=== PATIENT | male | born 1965 | race Caucasian/White ===

== ENCOUNTER 2020-04-15 07:00 | Outpatient (RCR) | payer OTHER, SELFPAY | END 2020-07-24 09:32 | disposition other institution (70) | LOC: HO.PTWFD 07:00 | PROVIDERS: PCP Internal Medicine; Visit Provider Family Medicine | DX: M54.2 Cervicalgia (principal); M54.5 Low back pain | CPT/HCPCS: 97014; 97110; 97140; 97530 ==

== ENCOUNTER 2020-04-17 12:59 | Outpatient (REF) | payer OTHER, SELFPAY ==
[2020-04-17 14:30] LABS: MANUAL DIFF FLAG NO
[2020-04-17 14:38] LABS: Basophils Percent Auto 0.4 % (0-2); Eosinophils Absolute Auto 0.1 X10*3/uL (0.0-0.4); Eosinophils Percent Auto 1.8 % (0-4); Hematocrit 45.6 % (42-52); Imm Gran Abs Auto 0.02 X10*3/uL (0.00-0.03); Imm Gran Pct Auto 0.3 % (0.0-0.4); Lymphocytes Absolute Auto 2.1 X10*3/uL (1.2-4.9); Lymphocytes Percent Auto 29.9 % (20-40); Mean Corpuscular HGB Conc 32.9 g/dl (31.0-36.0); Mean Corpuscular Hemoglobin 27.4 pg (27.0-33.0); Mean Corpuscular Volume 83.2 fL (80-98); Mean Platelet Volume 10.4 fL (9.4-12.4); Monocytes Absolute Auto 0.4 X10*3/uL (0.1-1.2); Monocytes Percent Auto 5.4 % (2-11); Neutrophils Absolute Auto 4.3 X10*3/uL (2.0-8.3); Neutrophils Percent Auto 62.2 % (45-73); Platelet Count 291 X10*3/uL (160-400); Red Blood Count 5.48 X10*6/uL (4.60-5.80); Red Cell Distribution Width 13.9 % (11.0-16.0); White Blood Count 6.9 X10*3/uL (4.8-10.8)
[2020-04-17 15:04] LABS: Alanine Aminotransferase 23 U/L (0-40); Albumin Level 4.6 g/dL (3.5-5.0); Alkaline Phosphatase 83 U/L (39-117); Anion Gap 16 (12-20); Aspartate Amino Transferase 17 U/L (5-37); Bilirubin Total 0.3 mg/dL (0.0-1.0); Blood Urea Nitrogen 12 mg/dL (9-16); Calcium 9.1 mg/dL (8.4-10.2); Carbon Dioxide 23 mmol/L (22-29); Chloride 104 mmol/L (96-108); Cholesterol 250 mg/dL; Estimated Glomerular Filt Rate > 60; Glucose Random 86 mg/dL (60-115); HDL Cholesterol 43 mg/dL; Iron 75 mcg/dL (45-160); LDL Cholesterol Calculated 167 mg/dl; Percent Iron Saturation 22 % (15-50); Potassium 4.5 mmol/l (3.3-5.1); Sodium 138 mmol/L (135-145); Total Iron Binding Capacity 344 mcg/dL (228-428); Triglycerides 201 mg/dL; Unsaturated Iron Binding 269 ug/dL
== END 2020-04-17 13:00 | disposition home or self-care (01) ==
LOC: HO.LAB 12:59
PROVIDERS: PCP Internal Medicine; Visit Provider Internal Medicine
DX: E78.5 Hyperlipidemia, unspecified (principal); K21.9 Gastro-esophageal reflux disease without esophagitis; D64.9 Anemia, unspecified
CPT/HCPCS: 36415; 80053; 80061; 83540; 85025

== ENCOUNTER → 2020-04-29 15:55 | Outpatient (REF) | payer OTHER, SELFPAY | LOC: HO.SL 15:55 | PROVIDERS: PCP Internal Medicine; Visit Provider Internal Medicine | DX: Z13.89 Encounter for screening for other disorder (principal) ==

== ENCOUNTER 2020-12-07 09:50 | Emergency (ER) | payer OTHER, SELFPAY ==
[2020-12-07 10:45] VITALS: BP 114/82; PULSE 91; RESP 18; TEMP 36.8; O2SAT 97; BMI 34.4
--- NOTE | 2020-12-07 11:15 | ED_ITS ---
HPI - URI/Sore Throat General Chief Complaint: Upper Respiratory Symptoms Stated Complaint: shortness of breath Time Seen by Provider: 12/07/20 10:53 Source: patient Mode of arrival: ambulatory Limitations: no limitations History of Present Illness HPI Narrative: 55-year-old male who presents emergency department for evaluation of rhinorrhea, productive cough, chest pain, shortness of breath, myalgias, arthralgias and subjective fever. Patient states that on Tuesday, 5 days prior to evaluation he developed a clear nasal discharge. He states that the next day the nasal discharge became thick and green. He then developed shortness of breath and dyspnea on exertion. He states he has had a cough which is also productive of thick, green phlegm. He states that he has had a subjective fever with no chills. He states that he is feeling fatigued and is body aches. States that he has developed shortness of breath and dyspnea on exertion. States that last night he felt very short of breath, had a very p ersistent cough and the had a slight panic attack feeling as if he was going to . He states that today his symptoms got worse therefore came to emergency department for evaluation. The patient does smoke 1/2 pack of cigarettes per day x8 years. He states that he received the [employer] COVID-19 vaccination approximately 1 week prior. Related Data Previous Rx's Medication Instructions Recorded albuterol sulfate 2 puff INHALATION Q4H PRN #8.5 g 12/07/20 doxycycline hyclate 100 mg PO Q12H 10 Days #20 tab 12/07/20 prednisone 60 mg PO DAILY 5 Days #15 tab 12/07/20 Allergies Allergy/AdvReac Type Severity Reaction Status Date / Time No Known Allergies Allergy Unverified 03/13/20 14:37 Review of Systems Review of Systems: Yes all other systems are reviewed and are negative Constitutional: Constitutional: Reports as per HPI Eyes: Eyes: Reports as per HPI ENT: Reports as per HPI Cardiovascular: Cardiovascular: Reports as per HPI Respiratory: Respiratory: Reports as per HPI Gastrointestinal: Gastrointestinal: Reports as per HPI Genitourinary: Genitourinary: Reports as per HPI Musculoskeletal: Musculoskeletal: Reports as per HPI Integumentary/Breasts: Skin/Breast: Reports as per HPI Neurologic: Reports as per HPI Psychiatric: Psychiatric: Reports as per HPI Allergic/Immunologic: Allergic/Immunologic: Reports as per HPI PMFSH Past Medical History [facility] Narrative: Past medical history: None. Past surgical history: None. Social history: Smokes 1/2 pack of cigarettes per day x8 years. Denies alcohol use. He denies drug use. 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 Medical History (Updated 12/07/20 @ 11:25 by Silverio Russ MD) No known health problems Social History Social History Advance Directives: Yes Advance Directives Information Provided: Yes Advance Directives on File: No Physical Exam Vital Signs: Vital Signs: Last Vital Signs Temp 98.3 F 12/07/20 10:45 Pulse 91 12/07/20 10:45 Resp 18 12/07/20 10:45 BP 114/82 12/07/20 10:45 Pulse Ox 97 12/07/20 10:45 Body Mass Index 34.4 Const: General: cooperative Orientation/consciousness: oriented to person and oriented to place Limitations: no limitations HENMT: Head: Yes normal to inspection, Yes normocephalic and Yes atraumatic Ears: external ears normal General nose exam: Normal external nose present, No nasal polyps present and Nasal discharge present mucoid (Thick, green) Face and sinus: Yes sinus tenderness (Mild bilateral maxillary) Mouth: Normal oral and palatal mucosa present Throat: Yes posterior oropharynx normal Eyes: Periorbital: periorbital findings normal Eyelids: Yes eyelids normal Conjunctivae: conjunctivae normal Sclerae: sclerae normal Corneas: corneas normal Pupils: Equal, round and reactive pupils present Direct Ophthalmoscopy: normal light reflex Neck: Neck: Yes full ROM, Yes no lymphadenopathy, Yes no meningeal signs, Yes trachea midline and Yes supple Chest: Chest palpation & inspection: normal inspection of the chest and normal palpation of entire chest wall Resp: Effort & Inspection: normal respiratory effort and able to speak in complete sentences Auscultation: rhonchi throughout and wheezes expiratory wheezes and throughout Cardio: Rate: regular rate Rhythm: regular rhythm Heart sounds: S1 normal heart sound present, S2 normal heart sound present and no murmurs GI: Inspection: Yes normal to inspection Palpation (GI): Soft to palpation, nontender, no guarding, not rigid and No hepatosplenomegaly present : General: Yes no CVA tenderness Back/Spine/Pelvis: Back: no CVA tenderness Cervical Spine: normal cervical lordosis Thoracic/Lumbar Spine: thoracic and lumbar spine normal to inspection Skin: Lesions: no lesions Rashes: no rashes Wounds: no wounds Neuro: General: oriented to person, oriented to place and no meningeal signs Cranial nerves: Yes CN's II-XII intact bilaterally and Yes Equal, round and reactive pupils present Cognition (Neuro): normal cognition Motor exam (neuro): 5/5 motor strength present throughout Extrem: General: Yes normal to inspection and Yes full ROM Psych: Appearance: well kempt Mental Status: mental status grossly normal Speech and movement: Normal speech and movement present Affect: normal affect Attitude: cooperative Thought process: Normal thought process present Thought content: Normal thought content present Course Course Course Narrative: 55-year-old male who presents emergency department for evaluation of symptoms consistent with an upper respiratory infection with subjective fever and myalgias. Vital signs were normal. Physical examination revealed maxillary sinus tenderness and expiratory wheezing and rhonchi throughout his lungs. Patient's presentation is consistent with an upper respiratory tract infection/bronchitis. Given that he is a smoker and has wheezing and rhonchorous lung sounds, I will treat the patient with antibiotics. Patient was started on doxycycline 100 mg every 12 hours times 10 days. He was also started on prednisone 60 mg once a day 5 days. Patient was treated in the emergency department with an albuterol inhaler with spacer 6 puffs for his wheezing. He is given a prescription for an albuterol inhaler 2 puffs every 5 times a day for 1 week. I will check the patient for COVID-19. 1201: Patient feels better after receiving the albuterol inhaler treatment as above. COVID-19 was negative. Patient was discharged home. MDM - URI/Sore Throat Lab Data Labs: Lab Results 12/07/20 Range/Units 11:29 COVID-19 ([facility]) Negative (Negative) COVID-19 Clin Com See Note Discharge Plan Discharge Clinical Impression: Bronchitis, Expiratory wheezing Patient Disposition: Home, Self-Care Instructions: Acute Bronchitis (ED) Additional Instructions: Your symptoms are consistent with bronchitis. On your lung exam your wheezing. Bronchitis can be a bacterial or of virus and infection. Given the fact that you are a smoker, I am going to treat you with antibiotic for possible bacterial bronchitis. Take doxycycline 100 mg, 1 pill every 12 hours for 10 days. This is an antibiotic that should treat a sinus infection and bronchitis. Take prednisone 20 mg pills, 3 pills once a day for 5 days. This is a strong anti-inflammatory medication and should relieve the inflammation in your nose, sinuses in lungs. Do not take [id number] anti-inflammatory medications such as ibuprofen, Motrin, Advil, Aleve or naproxen or aspirin while taking prednisone. You have significant wheezing on your lung exam. This is treated with albuterol. Use the albuterol inhaler, 2 puffs 5 times a day for 1 week. Use the inhaler with a spacer. This should help your cough, shortness of breath and wheezing. You need to stop smoking cigarettes. Follow-up with your doctor in 2 days. Please return to the emergency department if your symptoms get worse or if you develop any symptoms that are concerning to you. Prescriptions: New albuterol sulfate 90 mcg/actuation HFA aerosol inhaler 2 puff inhalation Q4H PRN (Reason: shortness of breath or wheezing) Qty: 8.5 RF: 0 prednisone 20 mg tablet 60 mg PO DAILY 5 Days Qty: 15 RF: 0 doxycycline hyclate 100 mg tablet 100 mg PO Q12H 10 Days Qty: 20 RF: 0
[2020-12-07] MEDS: Albuterol Sulfate 90 MCG 8 GM INHALER 6 PUFF INHALE (11:27)
[2020-12-07 11:57] LABS: COVID-19 Test Negative (Negative)
== END 2020-12-07 12:45 | disposition home or self-care (01) ==
PROVIDERS: Emergency Provider Emergency Medicine Emergency Medical Services; PCP Internal Medicine
DX: J40 Bronchitis, not specified as acute or chronic (principal); R06.2 Wheezing; F17.210 Nicotine dependence, cigarettes, uncomplicated; Z20.822 Contact with and (suspected) exposure to COVID-19
CPT/HCPCS: 36415; 87635; 99282; 99284

== ENCOUNTER 2020-12-10 08:03 | Outpatient (REF) | payer OTHER, SELFPAY ==
--- NOTE | ~2020-12-10 | XR_ITS ---
EXAMINATION: AP BILATERAL KNEE STANDING. BILATERAL KNEE. CLINICAL INFORMATION: Pain right knee COMPARISON: None TECHNIQUE: AP bilateral knee upright standing. 2 views each knee. FINDINGS: AP bilateral knee: There is a total bilateral knee prosthesis with prosthetic components in satisfactory alignment. No loosening visualized. No loose bodies identified. The soft tissues are normal. Right knee: There is a total right knee prosthesis with the tibial, femoral and patellar components in alignment. No loosening visualized. No abnormal joint effusion. A small loose body seen lateral to patellar likely old fracture fragment. Left knee: There is a total left knee prosthesis with the tibial, femoral and the patellar components in alignment. No acute fracture or loosening seen. No joint effusion seen. XR/XR knee LT 2V IMPRESSION: Total bilateral knee prosthesis with prosthetic components in satisfactory alignment. No prosthetic loosening seen. There is small loose body lateral to the patella.
--- NOTE | ~2020-12-10 | XR_ITS ---
EXAMINATION: AP BILATERAL KNEE STANDING. BILATERAL KNEE. CLINICAL INFORMATION: Pain right knee COMPARISON: None TECHNIQUE: AP bilateral knee upright standing. 2 views each knee. FINDINGS: AP bilateral knee: There is a total bilateral knee prosthesis with prosthetic components in satisfactory alignment. No loosening visualized. No loose bodies identified. The soft tissues are normal. Right knee: There is a total right knee prosthesis with the tibial, femoral and patellar components in alignment. No loosening visualized. No abnormal joint effusion. A small loose body seen lateral to patellar likely old fracture fragment. Left knee: There is a total left knee prosthesis with the tibial, femoral and the patellar components in alignment. No acute fracture or loosening seen. No joint effusion seen. XR/XR knee standing BI IMPRESSION: Total bilateral knee prosthesis with prosthetic components in satisfactory alignment. No prosthetic loosening seen. There is small loose body lateral to the patella.
--- NOTE | ~2020-12-10 | XR_ITS ---
EXAMINATION: AP BILATERAL KNEE STANDING. BILATERAL KNEE. CLINICAL INFORMATION: Pain right knee COMPARISON: None TECHNIQUE: AP bilateral knee upright standing. 2 views each knee. FINDINGS: AP bilateral knee: There is a total bilateral knee prosthesis with prosthetic components in satisfactory alignment. No loosening visualized. No loose bodies identified. The soft tissues are normal. Right knee: There is a total right knee prosthesis with the tibial, femoral and patellar components in alignment. No loosening visualized. No abnormal joint effusion. A small loose body seen lateral to patellar likely old fracture fragment. Left knee: There is a total left knee prosthesis with the tibial, femoral and the patellar components in alignment. No acute fracture or loosening seen. No joint effusion seen. XR/XR knee RT 2V IMPRESSION: Total bilateral knee prosthesis with prosthetic components in satisfactory alignment. No prosthetic loosening seen. There is small loose body lateral to the patella.
== END 2020-12-10 08:04 | disposition home or self-care (01) ==
LOC: HO.XRAY 08:03
PROVIDERS: PCP Internal Medicine; Visit Provider Orthopaedic Surgery
DX: M25.561 Pain in right knee (principal); M25.562 Pain in left knee; Z96.653 Presence of artificial knee joint, bilateral
CPT/HCPCS: 73560; 73565; 99212

== ENCOUNTER 2025-05-22 21:57 | Emergency (ER) | payer MEDICAID, SELFPAY ==
--- NOTE | ~2025-05-22 | XR_ITS ---
CLINICAL HISTORY: pain cant flex knee 6 view right knee Comparison: None provided Findings: Mild osteopenia. No acute fracture or dislocation. Prior right total knee arthroplasty. Two separate subcentimeter mineralization projected on AP projection within the joint space. Small joint effusion. No radiopaque foreign body. IMPRESSION: 1. Prior right total knee arthroplasty. 2. Two separate subcentimeter mineralizations within the joint space on AP projection. Consider CT of the right knee for confirmation. 3. Small joint effusion. 4. No acute osseous injury. This document has been electronically signed by: Quinn Garrison MD on 05/22/2025 23:25:51
--- NOTE | ~2025-05-22 | CT_ITS ---
CLINICAL HISTORY: fracture eval CT right knee without contrast Comparison: CR - XR KNEE RT 4V - 05/22/25 22:56 EST Findings: Within the limits of the exam no definite fractures identified. A small suprapatellar joint effusion is present. Small circular calcific bodies are in the posterior joint space. Extensor mechanism is grossly intact. Metallic artifact from right knee arthroplasty degrades the images and limits interpretation. IMPRESSION: Limited CT due to metallic artifact. No gross fracture identified. Small joint effusion is present. Small calcific bodies in the posterior joint space This document has been electronically signed by: Dre Akins MD, PHD on 05/23/2025 00:50:45
[2025-05-22 21:59] VITALS: BP 117/73; PULSE 92; RESP 18; O2SAT 99; BMI 23.5
--- OUTSIDE RECORDS SUMMARY | 2025-05-22 22:07 | XMS_ITS | Clinical Summary ---
Author Organization [employer] Address [address] [place] [address] Care Team Providers Care Community Living Coach Name Role Phone Yoan العلي KEILA Primary Care Provider [phone] Allergies No known active allergies Medications nicotine polacrilex (Nicorette) 4 MG gumIndications: Tobacco use disorder Chew 1 each (4 mg) if needed for smoking cessation. 100 each 11 11/07/2024 Active nicotine (Nicoderm CQ) 21 MG/24HR patchIndication s:Tobacco use disorder Place 1 patch on the skin 1 (one) time each day at the same time. 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 I have neto durham 11/07/[address] you li ve. Do you have problems with any of the following? None of the above 11/07/2024 Food Insecurity Answer Date Recorded Within the past 12 months, y ou worried that your food would run out before you got money to buy more: Sometimes True 2024 Within the past 12 months,th e food you bought just didn't last and you didn't have enough money to get more: Sometimes True 11/07/2024 Transportation Answer Date Recorded In the past 12 months, has l ack of transportation kept you from medical appts, meetings, work or from getting things needed for daily living? No 11/07/2024 Utilities Answer Date Recorded In the past 12 months, has t he [employer], gas, oil or water company threatened to shut off services in your home? No 11/07/2024 Depression Answer Date Recorded Patient Health Questionnaire-2 Score 2 11/07/2024 Internet Access Answer Date Recorded Internet Access Q1 Yes 11/07/2024 Internet Access Q2 Not on file 11/07/2024 Sex and Gender Information Value Date Recorded Sex Assigned at Male 04/26/2022 10:37 AM EDT Legal Sex Male 10:37 AM EDT Gender Identity Male 11/01/2024 11:56 AM EDT Sexual Orientation Straight 11/01/2024 11 :56 AM EDT Last Filed Vital Signs Vital Sign Reading Time Taken Comments Blood Pressure 109/62 11/07/2024 2:51 PM EDT Pulse 64 11/07/2024 2:51 PM EDT Temperature 36.2 C (97.1 F) 11/07/2024 2:51 PM EDT Respiratory Rate 18 11/07/2024 2:51 PM EDT Oxygen Saturation 98% 11/07/2024 2:51 PM EDT Inhaled Oxygen Concentration - - Weight 82.1 kg (181 lb) 11/07/2024 2:51 PM EDT Height - - Body Mass Index - - Plan of Treatment Health Maintenance Due Date Last Done Comments CT Colonography 1964 Colonoscopy 1964 Colorectal Cancer Screening 1964 FIT DNA/Cologuard 1964 FIT 1964 FOBT 1964 HIV Screening 1964 Lipid Panel 1964 Sigmoidoscopy 1964 Disability Screening 1964 Hepatitis C Screening 1982 DTaP/Tdap/Td Vaccines (1 - Tdap) 1983 Pneumococcal Vaccine: 50+ Years (1 of 2 - PCV) 1983 Zoster Vaccines (1 of 2) 2014 COVID-19 Vaccine (1 - 2024-2 6 season) 2025 Influenza Vaccine (#1) 2025 Depression Monitoring 05/10/2025 11/07/2024 , 11/07/2024 Alcohol/Substance Use Screening 11/07/2025 11/07/2024 SDOH Screening 11/07/2025 11/07/2024 Tobacco Screening 11/07/2025 11/07/2024 RSV Patients and Patients Aged 60 years or older (1 - 1-dose 75+ series) 2039 HIB Vaccines Aged Out No longer eligi ble based on patient's age to complete this topic HPV Vaccines Aged Out No longer eligi ble based on patient's age to complete this topic Hepatitis A Vaccines Aged Out No long er eligible based on patient's age to complete this topic Hepatitis B Vaccines Aged Out No long er eligible based on patient's age to complete this topic IPV Vaccines Aged Out No longer eligi ble based on patient's age to complete this topic Meningococcal B Vaccine Aged Out No l onger eligible based on patient's age to complete this topic Meningococcal Vaccine Aged Out No jazmín ld eligible based on patient's age to complete this topic RSV under 20 months Aged Out No longe r eligible based on patient's age to complete this topic Rotavirus Vaccines Aged Out No longer eligible based on patient's age to complete this topic Insurance [facility] C3 Care Teams Community Living Coach Relationship Specialty Start Date End Date Yoan العلي CNP PCP - General Family Medicine 11/07/24
--- NOTE | 2025-05-22 23:38 | ED_ITS ---
[facility] - General Adult General Chief complaint: Extremity Injury, Lower Stated complaint: SOB Time Seen by Provider: 05/22/25 23:14 Source: patient Mode of arrival: ambulatory Limitations: no limitations History of Present Illness ED Provider: Dr. Garcia [facility] narrative: 59-year-old male presented hospital today for right knee pain. Patient stated that it was difficult to move his leg. He stated he was walking up the steps when he felt his right knee gave out on him. Patient has had a knee replacement by Dr. Perez back in 2020 he had bilateral knee replacement then. No complication after the surgery. Patient has difficulty straightening his leg due to the pain. However he is able to strain it himself. Difficult to bear weight due to pain. Related Data Previous Rx's ?Medication ?Instructions ?Recorded doxycycline hyclate 100 mg tablet 100 mg PO Q12H 10 da ys #20 tabs 12/07/20 prednisone 20 mg tablet 60 mg (3 x 20 mg) PO DAILY 5 days 12/07/20 #15 tabs amoxicillin 500 mg tablet 2,000 mg (4 x 500 mg) PO ONC E 1 01/22/21 day #4 tabs oxycodone 5 mg tablet 5 mg PO Q8H PRN pain #14 tab s 05/23/25 sennosides 8.6 mg capsule (senna) 8.6 mg PO DAILY 14 d ays #14 caps 05/23/25 Allergies Allergy/AdvReac Type Severity Reaction Status Date / Time No Known Allergies Allergy Verified 05/22/25 22:03 Review of Systems 2 Review of Systems: Pertinent review of systems as mentioned in HPI. All other system otherwise negative. PENDING SALE TO [facility] Past Medical History [facility]END[facility] TO [facility] Narrative: Medical history as mentioned in HPI Medical History (Updated 05/23/25 @ 01:49 by Keri Garcia DO) No known health problems Surgical History (Updated 12/10/20 @ 09:34 by Nathalia Perez MD) History of total bilateral knee replacement Social History Social History (Updated 12/10/20 @ 09:19 by Abigail Bedolla CMA) Current occupational status: retired Current occupation: right handed Physical Exam ED Exam Exam: General: Pleasant, no distress, interacting appropriately Head: Normacephalic, atraumatic Extremities: Patient has slight suprapatellar effusion on exam. No sign of erythema no sign of swelling. Low suspicion for septic arthritis. CMS intact otherwise. Patient is able to extend his right knee however he does have tenderness when he does so. Neurological: Awake and alert, no facial droop noted Skin: Warm and dry Psychiatric: Appropriate mood and thoughts Vital Signs: Vital Signs - 24 hr 05/22/25 21:59 05/22/25 23:55 05/23/25 02:08 Temperature 98.5 F 98.4 F Pulse Rate 92 56 51 Respiratory Rate 18 Blood Pressure 117/73 112/53 L 103/56 L Pulse Oximetry 99 99 100 Oxygen Delivery Method Room Air Room Air Room Air 05/23/25 02:12 Temperature 98.4 F Pulse Rate 51 Respiratory Rate 16 Blood Pressure 103/56 L Pulse Oximetry 100 Oxygen Delivery Method Room Air BMI result Body Mass Index 23.5 Medications Administered Discontinued Medications Generic Name Dose Route Start Last Admin Trade Name Freq PRN Reason Stop Dose Admin Oxycodone HCl 5 mg 05/22/25 23:46 05/23/25 00:17 Oxycodone Hcl Immed Release 5 Mg Tablet PO 05/22/25 23:47 5 mg ONCE ONE Administration Medical Decision Making Medical Decision Making [facility] Narrative: This is a 59-year-old male presents to ER today for evaluation of right knee pain. Patient has had knee surgeries in back in 2020. Patient does have slight knee effusion. Wonder if the patient strain or sprain his right knee. Perhaps he may have injured a ligament inside his knee that given him his this instability. This also may be arthritic changes that is causing effusion that is causing his pain. X-ray were obtained. No signs of fracture Radiology recommended obtain a CT imaging for further evaluation. CT imaging did not show any signs of gross fracture. There is a small joint effusion and small calcific bodies in the posterior joint space. Perhaps this is may be indicated a PCL injury. Lab work obtained. No sign of leukocytosis. I have low suspicion for infectious pathology At this time we will plan to give patient a dose of oxycodone. We will plan to discharge patient with a course of oxycodone to take as needed for pain. Knee immobilizer and crutches will be provided the patient. Referral to orthopedic will be provided the patient for follow up. Discussed with the patient this plan. He is agreeable to this. Patient will be discharged. Differential Diagnosis Differential Diagnoses: The differential diagnosis associated with the presentation includes Septic arthritis, arthritis, knee effusion, ligamentous injury, periprosthetic fracture Lab Data MDM Lab Attestation statement: I reviewed the patient's lab results. 05/23/25 00:20 05/23/25 00:20 Labs: Lab Results 05/23/25 Range/Units 00:20 WBC 8.7 (4.8-10.8) X10*3/uL RBC 3.96 L (4.60-5.80) X10*6/uL Hgb 12.1 L (14.0-18.0) g/dl Hct 35.7 L (42.0-52.0) % MCV 90.2 (80.0-98.0) fL MCH 30.6 (27.0-33.0) pg MCHC 33.9 (31.0-36.0) g/dl RDW 12.0 (11.0-16.0) % Plt Count 242 (160-400) X10*3/uL MPV 9.2 L (9.4-12.4) fL Immature Gran % (Auto) 0.1 (0.0-0.4) % Neut % (Auto) 66.6 (45-73) % Lymph % (Auto) 27.4 (20-40) % [place] % (Auto) 4.9 (2-11) % Eos % (Auto) 0.7 (0-4) % Baso % (Auto) 0.3 (0-2) % Lymph # (Auto) 2.4 (1.2-4.9) X10*3/uL [place] # (Auto) 0.4 (0.1-1.2) X10*3/uL Eos # (Auto) 0.1 (0.0-0.4) X10*3/uL Baso # (Auto) 0.0 (0.0-0.2) X10*3/uL Abs Immat Gran (auto) 0.01 (0.00-0.03) X10*3/uL Absolute Neuts (auto) 5.8 (2.0-8.3) x10*3/uL Absolute Nucleated RBC 0.000 (0.0-0.012) X10*3/uL Nucleated RBC % (auto) 0.0 (0.0-0.2) /100WBC Sodium 138 (135-145) mmol/L Potassium 4.0 (3.3-5.1) mmol/L Chloride 105 (96-108) mmol/L Carbon Dioxide 26 (22-29) mmol/L Anion Gap 11 L (12-20) BUN 19 H (9-16) mg/dL Creatinine 0.76 (0.5-1.4) mg/dL Estim Creat Clear Calc 106.7 Estimated GFR > 60 Random Glucose 112 (60-115) mg/dL Calcium 8.9 (8.4-10.2) mg/dL C-Reactive Protein < 0.10 (< or = 0.50) mg/dL Independent Interpretation I performed an independent interpretation of an: Plain X-Ray and CT Scan Radiology Impression Discussion of test interpretation with radiology: I have reviewed the radiologist's reading. Discharge Plan Discharge Clinical Impression: Knee pain, right Qualifiers: Chronicity: acute Qualified Code(s): M25.561 - Pain in right knee Patient Disposition: Home, Self-Care Instructions: Knee Pain (ED) Additional Instructions: Follow up with Dr. Perez team. Prescriptions: New oxycodone 5 mg tablet 5 mg PO Q8H PRN (Reason: pain) Qty: 14 0RF Rx Instructions: Partial Fill upon patient request. senna 8.6 mg capsule 8.6 mg PO DAILY 14 Days Qty: 14 0RF No Action amoxicillin 500 mg tablet 2,000 mg PO ONCE 1 Days Qty: 4 3RF Rx Instructions: take 4 capsules 1 hr prior to dental procedure prednisone 20 mg tablet 60 mg PO DAILY 5 Days Qty: 15 0RF doxycycline hyclate 100 mg tablet 100 mg PO Q12H 10 Days Qty: 20 0RF [place] [facility] [place] [facility] [place]Provider Group] Interventions: ED Discharge Assessment Last Done: 05/23/25 02:12 Discharge Date/Time: 05/23/25 02:14 Print Language: Danish
[2025-05-22 23:55] VITALS: BP 112/53; PULSE 56; TEMP 36.9; O2SAT 99
[2025-05-23] MEDS: oxyCODONE HCl Immed Release 5 MG TABLET PO (00:17)
[2025-05-23 00:27] LABS: MANUAL DIFF FLAG NO
[2025-05-23 00:28] LABS: Hematocrit 35.7 % (42.0-52.0); Hemoglobin 12.1 g/dl (14.0-18.0); Imm Gran Abs Auto 0.01 X10*3/uL (0.00-0.03); Imm Gran Pct Auto 0.1 % (0.0-0.4); Lymphocytes Absolute Auto 2.4 X10*3/uL (1.2-4.9); Mean Corpuscular HGB Conc 33.9 g/dl (31.0-36.0); Mean Corpuscular Hemoglobin 30.6 pg (27.0-33.0); Mean Corpuscular Volume 90.2 fL (80.0-98.0); NRBC Abs Auto 0.000 X10*3/uL (0.0-0.012); NRBC Pct Auto 0.0 /100WBC (0.0-0.2); Platelet Count 242 X10*3/uL (160-400); Red Blood Count 3.96 X10*6/uL (4.60-5.80); White Blood Count 8.7 X10*3/uL (4.8-10.8)
[2025-05-23 00:41] LABS: Anion Gap 11 (12-20); Blood Urea Nitrogen 19 mg/dL (9-16); Calcium 8.9 mg/dL (8.4-10.2); Carbon Dioxide 26 mmol/L (22-29); Chloride 105 mmol/L (96-108); Creatinine Clr Calc Pharmacy 106.7; Estimated Glomerular Filt Rate > 60; Potassium 4.0 mmol/L (3.3-5.1); Sodium 138 mmol/L (135-145)
[2025-05-23 02:08] VITALS: BP 103/56; PULSE 51; TEMP 36.9; O2SAT 100
[2025-05-23 02:12] VITALS: BP 103/56; PULSE 51; RESP 16; TEMP 36.9; O2SAT 100
== END 2025-05-23 02:14 | disposition home or self-care (01) ==
PROVIDERS: Emergency Provider Student in an Organized Health Care Education/Training Program
DX: T84.84XA Pain due to internal orthopedic prosthetic devices, implants and grafts, initial encounter (principal); M25.461 Effusion, right knee; Z96.653 Presence of artificial knee joint, bilateral
CPT/HCPCS: 36415; 73564; 73700; 80048; 85025; 86140; 99283; 99284

== ENCOUNTER → 2025-05-22 22:55 | Outpatient (BNV) | payer MEDICAID, SELFPAY | PROVIDERS: Emergency Provider Student in an Organized Health Care Education/Training Program; Visit Provider Radiology Diagnostic Radiology | DX: M71.461 Calcium deposit in bursa, right knee (principal); M25.461 Effusion, right knee; Z96.651 Presence of right artificial knee joint | CPT/HCPCS: 73564; 73700 ==